=== PATIENT | male | born 1985 | race Caucasian/White ===

== ENCOUNTER 2022-09-09 21:58 | Emergency (ER) | payer BC ==
[~2022-09-09] VITALS: Ht 180.3 cm; Wt 100.0 kg
[2022-09-09 22:05] VITALS: TEMP 98.2
[2022-09-09 22:39] LABS: BASO # 0.1 K/mm3 (0.0-0.2); BASO % 0.7 % (0.0-2.0); EOS # 0.3 K/mm3 (0.0-0.7); EOS % 4.4 % (0.0-4.0); GRAN % 58.7 % (42.2-75.2); HEMOGLOBIN 14.1 g/dl (13.5-18.0); LYMPH # 1.7 K/mm3 (1.2-3.4); LYMPH % 25.6 % (20.0-51.0); MEAN CELL VOLUME 80 fl (80.0-100.0); MEAN CORPUSCULAR HEMOGLOBIN 26 pg (27-31); MEAN CORPUSCULAR HGB CONC 32 g/dl (33.0-37.0); MEAN PLATELET VOLUME 10.1 fl (7.4-10.4); MONO # 0.7 K/mm3 (0.1-0.6); MONO % 10.3 % (1.7-9.3); PLATELET COUNT 189 K/mm3 (130-400); RED BLOOD COUNT 5.48 M/mm3 (4.20-5.60); REDCELL DISTRIBUTION WIDTH-CV 15.6 % (11.5-14.5)
[2022-09-09 22:58] LABS: ALBUMIN 3.8 gm/dL (3.5-5.0); BILIRUBIN,TOTAL 0.9 mg/dL (0.2-1.2); CALCIUM 8.9 mg/dL (8.4-10.2); CREATININE, serum 1.27 mg/dL (0.72-1.25); TOTAL PROTEIN 6.8 gm/dL (6.2-8.1)
[2022-09-09] MEDS ORDERED: XARELTO STARTER20 MG PO (23:02)
[2022-09-09 23:38] VITALS: BP 144/78; PULSE 76
== END 2022-09-10 00:18 | disposition home or self-care (01) ==
LOC: COL.ER 21:58
PROVIDERS: Physician Assistant
DX: I82.401 Acute embolism and thrombosis of unspecified deep veins of right lower extremity (principal); H83.2X1 Labyrinthine dysfunction, right ear; Z79.01 Long term (current) use of anticoagulants; Z28.310 Unvaccinated for COVID-19

== ENCOUNTER → 2022-09-12 | Outpatient (CLI) | payer BC ==
[~2022-09-12] MED LIST: XARELTO STARTER20 MG PO
== END ==
LOC: COL.VAS 05:38
DX: M79.604 Pain in right leg (principal)